=== PATIENT | female | born 1955 | race American Indian/Alaskan Native ===

== ENCOUNTER 2016-12-15 07:55 | Emergency (ER) | payer OTHER ==
[2016-12-15 08:12] VITALS: BP 139/73
[2016-12-15] MEDS ORDERED: XYLOCAINE 2% INFILTRATI ONE (10:27)
[2016-12-15] MEDS ORDERED: ROCEPHIN IM ONE (10:36)
[2016-12-15] MEDS ORDERED: XYLOCAINE 1% MPF 5 mL INFILTRATI ONE (10:36)
[2016-12-15] MEDS ORDERED: MOTRIN PO ONE (10:36)
--- NOTE | 2016-12-15 18:43 | Emergency Department Report ---
Entered by TIFFANY REYNOLDS, acting as scribe for LISHA GALVEZ NP. ED ENT HPI - General Chief complaint: Dental/Oral Stated complaint: TOOTHACHE W/SWELLING/SORE THROAT Time Seen by Provider: 12/15/16 10:24 Source: patient, family Mode of arrival: Ambulatory Limitations: Language Barrier - History of Present Illness Initial comments: This is a 61 y/o female, nontoxic, well nourished in appearance, no acute signs of distress with a PMHx of SC presents with right lower dental pain that began 3 days ago. Rates pain a 10/10 in severity, which she describes as aching in quality. Aggravated with eating and alleviated with nothing. Reports associated right jaw swelling x 1 day but she denies fever, chills, headache, sore throat, chest pain, SOB, stiff neck, dizziness, numbness, and tingling. Patient's daughter is currently in the room translating for patient. Daughter states she has a dentist, but he is does not work in the [employer] MD complaint: tooth pain (right lower) Onset/Timin -: days(s) Location: tooth # Severity: severe Severity scale (0 -10): 10 Quality: aching Consistency: constant Improves with: none Worsens with: eating Context- Dental: history of dental caries Associated Symptoms: toothache (right lower). denies: fever, cough, gum swelling, pain with swallowing, sore throat, tinnitus, hearing loss, discharge from ear, rhinorrhea - Related Data Previous Rx's Medication Instructions Recorded Last Taken Type Amoxicillin/K Clav Tab [Augmentin 1 tab PO Q12HR #20 tab 12/15/16 Unknown Rx 875 mg] traMADol [Ultram] 50 mg PO Q4HR PRN #10 tablet 12/15/16 Unknown Rx Allergies Allergy/AdvReac Type Severity Reaction Status Date / Time No Known Allergies Allergy Verified 12/15/16 08:08 ED Dental HPI - General Chief complaint: Dental/Oral Stated complaint: TOOTHACHE W/SWELLING/SORE THROAT Source: patient, family Mode of arrival: Ambulatory Limitations: Language Barrier - History of Present Illness MD complaint: tooth pain Onset/Timin -: days(s) Severity: severe (10/10) Quality: aching Consistency: constant Improves with: none Worsens with: eating, chewing Context- Dental: history of dental caries Dental Associated Symptons: No: Headache, Earache, Sore Throat, Gum Swelling, Fever - Related Data Previous Rx's Medication Instructions Recorded Last Taken Type Amoxicillin/K Clav Tab [Augmentin 1 tab PO Q12HR #20 tab 12/15/16 Unknown Rx 875 mg] traMADol [Ultram] 50 mg PO Q4HR PRN #10 tablet 12/15/16 Unknown Rx Allergies Allergy/AdvReac Type Severity Reaction Status Date / Time No Known Allergies Allergy Verified 12/15/16 08:08 ED Review of Systems ROS: Stated complaint: TOOTHACHE W/SWELLING/SORE THROAT Other details as noted in HPI Comment: All other systems reviewed and negative Constitutional: denies: chills, diaphoresis, fever, weakness Eyes: denies: eye pain, eye discharge, vision change ENT: dental pain (right lower), other (slight right facial swelling). denies: ear pain, throat pain, hearing loss, epistaxis, congestion Respiratory: denies: cough, shortness of breath, wheezing Cardiovascular: denies: chest pain, palpitations, dyspnea on exertion, orthopnea , edema, syncope, paroxysmal nocturnal dyspnea Endocrine: no symptoms reported Gastrointestinal: denies: abdominal pain, nausea, vomiting, diarrhea Genitourinary: denies: urgency, dysuria, discharge Musculoskeletal: denies: back pain, joint swelling, arthralgia, myalgia Skin: denies: rash, lesions Neurological: denies: headache, weakness, numbness, paresthesias Psychiatric: denies: anxiety, depression Hematological/Lymphatic: denies: easy bleeding, easy bruising ED Past Medical Hx - Past Medical History Previous Medical History?: Yes Hx Heart Attack/AMI: Yes - Surgical History Past Surgical History?: Yes Hx Coronary Stent: Yes - Social History Smoking Status: Never Smoker Substance Use Type: None - Medications Home Medications: Home Medications Medication Instructions Recorded Confirmed Last Taken Type Amoxicillin/K Clav Tab [Augmentin 1 tab PO Q12HR #20 tab 12/15/16 Unknown Rx 875 mg] traMADol [Ultram] 50 mg PO Q4HR PRN #10 tablet 12/15/16 Unknown Rx ED Physical Exam - General Limitations: Language Barrier General appearance: alert, in no apparent distress - Head Head exam: Present: atraumatic, normocephalic - Eye Eye exam: Present: normal appearance, PERRL, EOMI Pupils: Present: normal accommodation - ENT ENT exam: Present: normal orophraynx, mucous membranes moist, TM's normal bilaterally, normal external ear exam. Absent: normal exam - Expanded ENT Exam Expanded Ear exam: Present: normal external inspection Mouth exam: Present: normal external inspection (uvual is midline), tongue normal, other (no angioedema present). Absent: drooling, trismus, muffled voice , tongue elevation, laceration Teeth exam: Present: dental caries, dental tenderness #, gingival enlargement. Absent: fractured tooth # Throat exam: Positive: normal inspection. Negative: tonsillar erythema, tonsillomegaly, tonsillar exudate, R peritonsillar mass, L peritonsillar mass - Neck Neck exam: Present: normal inspection, full ROM. Absent: tenderness, meningismus, lymphadenopathy, thyromegaly - Respiratory Respiratory exam: Present: normal lung sounds bilaterally. Absent: respiratory distress, wheezes, rales, rhonchi, stridor, chest wall tenderness, accessory muscle use, decreased breath sounds, prolonged expiratory - Cardiovascular Cardiovascular Exam: Present: regular rate, normal rhythm, normal heart sounds. Absent: systolic murmur, diastolic murmur, rubs, gallop - GI/Abdominal GI/Abdominal exam: Present: soft, normal bowel sounds. Absent: distended - Extremities Exam Extremities exam: Present: normal inspection, full ROM, normal capillary refill. Absent: tenderness, pedal edema, joint swelling, calf tenderness - Back Exam Back exam: Present: normal inspection, full ROM. Absent: tenderness, CVA tenderness (R), CVA tenderness (L), muscle spasm, paraspinal tenderness, vertebral tenderness, rash noted - Neurological Exam Neurological exam: Present: alert, oriented X3, CN II-XII intact, normal gait, reflexes normal. Absent: motor sensory deficit - Psychiatric Psychiatric exam: Present: normal affect, normal mood - Skin Skin exam: Present: warm, dry, intact. Absent: rash ED Course Vital Signs 12/15/16 08:08 Temperature 99.7 F H Pulse Rate 78 Respiratory 18 Rate Blood Pressure 139/73 O2 Sat by Pulse 100 Oximetry - Reevaluation(s) Reevaluation #1: 12/15/16 11:46 Patient is speaking in full sentences with no signs of distress noted. ED Medical Decision Making - Medical Decision Making ED course; this is a 61-year-old female that presents with gingivitis and dental caries 1- patient was examined myself. Upon using ultrasound, there are no signs of abscess formation. No fluctuance noted. There is slight minimal rigth fical swelling. Patient received Rocephin 250 mg IM the ED. 2- patient also received ibuprofen 800 mg for pain in ED. 3- patient received Augmentin and Ultram at discharg and was instructed that there was full course of antibiotics and not to operate any machinery while taking Ultram due to sedation/drowsiness. 4- patient was notified to follow-up with a dentist in 24 hours and observe symptoms of increased facial swelling, pus, drainage, stiff neck, headache, chest pain, short of breath, blurry vision, fever, chills, or symptoms of worsening return to emergency room as soon as possible 5- At the time of d/c, patient is stable with no signs of distress. Patient stated she agrees and understands to the d/c instructions and treatment plan. Critical care attestation.: If time is entered above; I have spent that time in minutes in the direct care of this critically ill patient, excluding procedure time. ED Disposition Clinical Impression: Dental caries, Gingivitis Disposition: [id number] TO HOME OR SELFCARE Is pt being admited?: No Does the pt Need Aspirin: No Condition: Stable Instructions: Amoxicillin/Clavulanate Potassium (By mouth), Tramadol (By mouth) , Dental Caries (ED), Gingivitis (ED) Additional Instructions: follow-up with a dentist in 24 hours and observe symptoms of increased facial swelling, pus, drainage, stiff neck, headache, chest pain, short of breath, blurry vision, fever, chills, or symptoms of worsening return to emergency room as soon as possible Take full course of antibitocs as prescribed. Do not operate any machinery while taking Ultram due to sedation/drowsiness Prescriptions: Amoxicillin/K Clav Tab [Augmentin 875 mg] 1 tab PO Q12HR #20 tab traMADol [Ultram] 50 mg PO Q4HR PRN #10 tablet PRN Reason: Pain Referrals: PRIMARY CAREMD [Primary Care Provider] - 3-5 Days DILIP ARAUJO MD [Staff Physician] - 3-5 Days [facility] [Outside] - 3-5 Days [facility] [Outside] - 24 Hours [facility] [Outside] - 24 Hours Forms: Work/School Release Form(ED) This documentation as recorded by the RODOLFO tyler JASMINE,accurately reflects the service I personally performed and the decisions made by me,LISHA GALVEZ, SERVICE TECH.
== END 2016-12-15 12:03 | disposition home or self-care (01) ==
LOC: ED 07:55
DX: K05.10 Chronic gingivitis, plaque induced (principal); K02.9 Dental caries, unspecified
CPT/HCPCS: 96372; 99282; J0696